=== PATIENT | female | born 1995 | race Hispanic/Latino ===

== ENCOUNTER 2020-06-28 06:24 | Day surgery (SDC) | payer OTHER ==
[2020-06-26 16:36] LABS: Absolute Lymphocytes (CBC) 2.2 K/uL (0.7-4.9); Basophils % 0.7 % (0-1.3); Hematocrit 38.5 % (36.0-45.0); Lymphocytes % 20.3 % (15.3-44.8); MPV 11.2 fL (7.6-11.3); RBC Red Blood Cell Count 4.38 M/uL (3.86-4.86)
[2020-06-26 16:55] LABS: ALT/SGPT 21 U/L (12-78); AST/SGOT 11 U/L (15-37); Albumin 3.5 g/dL (3.4-5.0); Alkaline Phosphatase 56 U/L (45-117); Amylase 108 U/L (25-115); BUN Blood Urea Nitrogen 9 mg/dL (7-18); Bicarbonate 26 mmol/L (21-32); Bilirubin Direct 0.2 mg/dL (0-0.2); Bilirubin Total 0.6 mg/dL (0.2-1.0); Glucose Level 86 mg/dL (74-106); Lipase 310 U/L (73-393); Potassium 3.6 mmol/L (3.5-5.1); Protein, Total 7.4 g/dL (6.4-8.2); Sodium Level 144 mmol/L (136-145)
--- OUTSIDE RECORDS SUMMARY | 2020-06-28 06:27 | XMS REPORT | Continuity of Care Document ---
:[address] [facility] t Address [address] [place] [address] Care Team Providers Name Role Phone Estevez Attending Clinician Adalberto Morillo Attending Clinician Payers Payer Name Policy Type Policy Number Effective Date Expiration Date S ource Problems This patient has no known problems. Allergies, Adverse Reactions, Alerts Allergy Allergy Status Severity Reaction(s) Onset Inactive Treating Comm ents Source Name Type Date Date Clinician No Known DA Active U 2019-0 [facility] 11-28 Clear s 00:00: [place] 00 [facility] No Known DA Active U 2019-0 [facility] Allergie 11-12 Clear s 00:00: [place] 00 [facility] Medications This patient has no known medications. Procedures This patient has no known procedures. Encounters Start End Encounter Admission Attending Care Care Encounter Source Date/Time Date/Time Type Type Clinicians Facility Department ID 2020-06-02 2020-06-03 Emergency MELISSA Estevez [id number] 21:34:00 00:27:00 Angel Lopez [id number] [place] [id number] [place] [id number] 2019-10-07 2019-10-07 Emergency MELISSA Escamilla [id number] 03:55:15 07:11:00 Prasad Lopez [id number] [place] [id number] [place] [id number] 084 Results Test Description Test Time Test Comments Results Result Comments Source COMPREHENSIVE METABOLIC PANEL 2018-11-30 10:07:00 Test Item Value Reference Range Interpretation Comme nts SODIUM (test code = NA) 142 mmol/L 136-145 N POTASSIUM (test code = K) 3.4 mmol/L 3.5-5.1 L CHLORIDE (test code = CL) 110.0 mmol/L 98-107 H CARBON DIOXIDE (test code = 24.0 mmol/L 21-32 N CO2) ANION GAP (test code = GAP) 11.4 10-20 N GLUCOSE (test code = GLU) 82 mg/dL 74-106 N BLOOD UREA NITROGEN (test code 5 mg/dL 7-18 L = BUN) GLOMERULAR FILTRATION RATE > 60 mL/min >=60 E stimated GFR by using (test code = GFR) Modified M DRD formula.Chronic kidney disease is defined as either kidney d amageor GFR <60 mL/min/1.73 m2 for >3 months. CREATININE (test code = CREAT) 0.70 mg/dL 0.55-1.02 N Note change in reference range due to ch jovan in reagent. BUN/CREATININE RATIO (test code 7.1 10-20 L = BUN/CREA) TOTAL PROTEIN (test code = 7.8 gram/dL 6.4-8.2 N PROT) ALBUMIN (test code = ALB) 3.2 g/dL 3.4-5.0 L GLOBULIN (test code = GLOB) 4.6 gram/dL 2.7-4.2 H ALBUMIN/GLOBULIN RATIO (test 0.7 0.75-1.50 L code = A/G) CALCIUM (test code = CA) 9.1 mg/dL 8.5-10.1 N BILIRUBIN TOTAL (test code = 1.90 mg/dL 0.0-1.0 H BILT) SGOT/AST (test code = AST) 83 IUnit/L 15-37 H SGPT/ALT (test code = ALT) 350 IUnit/L 12-78 H ALKALINE PHOSPHATASE TOTAL 85 IUnit/L 45-117 N * *Note change in reference (test code = ALKP) range due to change in reagent. COMPREHENSIVE METABOLIC [id number] 10:00:00 Test Item Value Reference Range Interpretation Comments SODIUM (test code = NA) 142 mmol/L 136-145 N POTASSIUM (test code = K) 3.4 mmol/L 3.5-5.1 L CHLORIDE (test code = CL) 110.0 mmol/L 98-107 H CARBON DIOXIDE (test code = CO2) mmol/L 21-32 ANION GAP (test code = GAP) 10-20 GLUCOSE (test code = GLU) mg/dL 74-106 BLOOD UREA NITROGEN (test code = mg/dL 7-18 BUN) GLOMERULAR FILTRATION RATE (test mL/min >=60 code = GFR) CREATININE (test code = CREAT) mg/dL 0.55-1.02 BUN/CREATININE RATIO (test code 10-20 = BUN/CREA) TOTAL PROTEIN (test code = PROT) gram/dL 6.4-8.2 ALBUMIN (test code = ALB) g/dL 3.4-5.0 GLOBULIN (test code = GLOB) gram/dL 2.7-4.2 ALBUMIN/GLOBULIN RATIO (test 0.75-1.50 code = A/G) CALCIUM (test code = CA) mg/dL 8.5-10.1 BILIRUBIN TOTAL (test code = mg/dL 0.0-1.0 BILT) SGOT/AST (test code = AST) IUnit/L 15-37 SGPT/ALT (test code = ALT) IUnit/L 12-78 ALKALINE PHOSPHATASE TOTAL (test IUnit/L 45-117 code = ALKP) [id number] 17:13:00 Test Item Value Reference Range Interpretation Comments LIPASE (test code = LIP) 468 U/L 73.0-393.0 H ACETONE [id number] 17:13:00 Test Item Value Reference Range Interpretation Comments ACETONE BLOOD (test code = ACETB) NEGATIVE NEGATIVE SED [id number] 10:58:00 Test Item Value Reference Range Interpretation Comments SED RATE (test code = 41 mm/hr 0-20 H WINTRO BE METHOD: NORMAL SEDW) RANGE FOR MEN: 0-9 MM/HR WOMAN: 0-20 MM/HR SENT [id number] V.LAB.KP2 11/29/18 0704SED RATE [id number] 10:57:00 Test Item Value Reference Range Interpretation Comments SED RATE WESTERGREN (test code = 41 mm/hr 0-20 H SEDW) COMPREHENSIVE METABOLIC [id number] 07:45:00 Test Item Value Reference Range Interpretation Comments SODIUM (test code = 142 mmol/L 136-145 N NA) POTASSIUM (test code = 3.1 mmol/L 3.5-5.1 L K) CHLORIDE (test code = 111.0 mmol/L 98-107 H CL) CARBON DIOXIDE (test 21.0 mmol/L 21-32 N code = CO2) ANION GAP (test code = 13.1 10-20 N GAP) GLUCOSE (test code = 101 mg/dL 74-106 N GLU) BLOOD UREA NITROGEN 4 mg/dL 7-18 L (test code = BUN) GLOMERULAR FILTRATION > 60 mL/min >=60 Estima annabella GFR by RATE (test code = GFR) using Modified MDRD formula.Chronic kidney disease is defined as ei er kidney damageor GFR <60 mL/min/1.73 m2 for >3 months. CREATININE (test code 0.60 mg/dL 0.55-1.02 N Note change in = CREAT) reference range due to change in reagent. BUN/CREATININE RATIO 6.7 10-20 L (test code = BUN/CREA) TOTAL PROTEIN (test 7.3 gram/dL 6.4-8.2 N code = PROT) ALBUMIN (test code = 3.1 g/dL 3.4-5.0 L ALB) GLOBULIN (test code = 4.2 gram/dL 2.7-4.2 N GLOB) ALBUMIN/GLOBULIN RATIO 0.7 0.75-1.50 L (test code = A/G) CALCIUM (test code = 8.6 mg/dL 8.5-10.1 N CA) BILIRUBIN TOTAL (test 2.10 mg/dL 0.0-1.0 H code = BILT) SGOT/AST (test code = 104 IUnit/L 15-37 H AST) SGPT/ALT (test code = 363 IUnit/L 12-78 H ALT) ALKALINE PHOSPHATASE 85 IUnit/L 45-117 N Note change in TOTAL (test code = reference range due ALKP) to change in reagent. [id number] 07:45:00 Test Item Value Reference Range Interpretation Comments MAGNESIUM (test code = MAG) 1.9 mg/dL 1.8-2.4 N [id number] 07:32:00 Test Item Value Reference Range Interpretation Comments LIPASE (test code = LIP) 468 U/L 73.0-393.0 H ACETONE [id number] 07:32:00 Test Item Value Reference Range Interpretation Comments ACETONE BLOOD (test code = ACETB) NEGATIVE COMPREHENSIVE METABOLIC [id number] 07:32:00 Test Item Value Reference Range Interpretation Comments SODIUM (test code = NA) 142 mmol/L 136-145 N POTASSIUM (test code = K) 3.1 mmol/L 3.5-5.1 L CHLORIDE (test code = CL) 111.0 mmol/L 98-107 H CARBON DIOXIDE (test code = CO2) mmol/L 21-32 ANION GAP (test code = GAP) 10-20 GLUCOSE (test code = GLU) mg/dL 74-106 BLOOD UREA NITROGEN (test code = mg/dL 7-18 BUN) GLOMERULAR FILTRATION RATE (test mL/min >=60 code = GFR) CREATININE (test code = CREAT) mg/dL 0.55-1.02 BUN/CREATININE RATIO (test code 10-20 = BUN/CREA) TOTAL PROTEIN (test code = PROT) gram/dL 6.4-8.2 ALBUMIN (test code = ALB) g/dL 3.4-5.0 GLOBULIN (test code = GLOB) gram/dL 2.7-4.2 ALBUMIN/GLOBULIN RATIO (test 0.75-1.50 code = A/G) CALCIUM (test code = CA) mg/dL 8.5-10.1 BILIRUBIN TOTAL (test code = mg/dL 0.0-1.0 BILT) SGOT/AST (test code = AST) IUnit/L 15-37 SGPT/ALT (test code = ALT) IUnit/L 12-78 ALKALINE PHOSPHATASE TOTAL (test IUnit/L 45-117 code = ALKP) [id number] 07:32:00 Test Item Value Reference Range Interpretation Comments MAGNESIUM (test code = MAG) mg/dL 1.8-2.4 - CT ABD PELVIS [id number] 20:40:00 [facility] 1995 Age/S: 23 / F Royce Jordan Unit #: [id number] Loc: [place] [address] Phys: Micki Gao MD Acct: [id number] Dis Date: Status: ADM IN PHONE #: [phone] Exam Date: 11/28/20182131 FAX #: [phone] Reason: RECENT GASTRIC SLEEVE, NOT TOLERATING PO EXAMS: CPTCODE: [id number] CT ABD PELVIS W/CONT 18080 REASON FOR EXAM: RECENT GASTRIC SLEEVE, NOT TOLERATING PO EXAM ORDER DATE: 11/28/2018 7:00 PM Ordering M.DReggie: Micki Gao MD PROCEDURE: - CT ABD PELVIS W/CONT COMPARISON: FINDINGS: CT images of the abdomen and pelvis were obtained with IV and oral contrast at 5mm. Dose modulation, iterative reconstruction, and/or weight based adjustment of the MA/KV was utilized to reduce the radiation dose to as low as reasonably achievable. Intravenous contrast: 100cc of Omnipaque 370. The liver, sple en, pancreas are grossly within normal limits. The gallbladder is unremarkable by CT The kidneys are within normal limits. The urinary bladder is partially contracted The colon, small bowel, and stomach are within normal limits without evidence of obstruction. The appendix is unremarkable. 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 The uterus is unremarkable. 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 No evidence of postop fluid collection or abscess. No acute findings inthe abdomen at 2039 Reported and signed by: Avery Luna M.D. CC: Technologist:RT Laurence(R)(CT); ... CTDI: DLP: Trnscb Date/Time: 11/28/2018 (2039) Yue Orig Print D/T: S: 11/28/2018 (2042) PAGE 1 Signed ReportBASIC METABOLIC [id number] 20:03:00 Test Item Value Reference Range Interpretation Comments SODIUM (test code = 139 mmol/L 136-145 N NA) POTASSIUM (test code 3.7 mmol/L 3.5-5.1 N = K) CHLORIDE (test code = 108.0 mmol/L 98-107 H CL) CARBON DIOXIDE (test 16.0 mmol/L 21-32 L code = CO2) ANION GAP (test code 18.7 10-20 N = GAP) GLUCOSE (test code = 81 mg/dL 74-106 N GLU) BLOOD UREA NITROGEN 7 mg/dL 7-18 N (test code = BUN) GLOMERULAR FILTRATION > 60 mL/min >=60 Estima annabella GFR by RATE (test code = using Portillo fied MDRD GFR) formula.Chronic kidney disease is defined as [facility] er kidney damageor GFR <60 mL/min/1.73 m2 for >3 months. CREATININE (test code 0.60 mg/dL 0.55-1.02 N Note change in = CREAT) reference range due to change in reagent. BUN/CREATININE RATIO 11.7 10-20 N (test code = BUN/CREA) CALCIUM (test code = 9.5 mg/dL 8.5-10.1 N CA) HEPATIC FUNCTION [id number] 20:03:00 Test Item Value Reference Range Interpretation Comments TOTAL PROTEIN (test 9.0 gram/dL 6.4-8.2 H code = PROT) ALBUMIN (test code = 3.7 g/dL 3.4-5.0 N ALB) GLOBULIN (test code = 5.3 gram/dL 2.7-4.2 H GLOB) ALBUMIN/GLOBULIN RATIO 0.7 0.75-1.50 L (test code = A/G) BILIRUBIN TOTAL (test 2.60 mg/dL 0.0-1.0 H code = BILT) BILIRUBIN DIRECT (test 1.70 mg/dL 0.0-0.20 H code = BILD) SGOT/AST (test code = 133 IUnit/L 15-37 H AST) SGPT/ALT (test code = 440 IUnit/L 12-78 H ALT) ALKALINE PHOSPHATASE 109 IUnit/L 45-117 N Note change in TOTAL (test code = reference range due ALKP) to change in reagent. [id number] 20:03:00 Test Item Value Reference Range Interpretation Comments LIPASE (test code = LIP) 435 U/L 73.0-393.0 H HCG SERUM [id number] 20:03:00 Test Item Value Reference Range Interpretation Comments HCG SERUM QUAL (test NEGATIVE NEGATIVE This HC GQL test is NOT code = HCGQL) applicable for MALE patients.Check with nurse about probable order error.If Tumor Marker Test needed, nu rse should order test "HCG TU"(Test #550.08045)---- - BASIC METABOLIC [id number] 19:57:00 Test Item Value Reference Range Interpretation Comments SODIUM (test code = NA) 139 mmol/L 136-145 N POTASSIUM (test code = K) 3.7 mmol/L 3.5-5.1 N CHLORIDE (test code = CL) 108.0 mmol/L 98-107 H CARBON DIOXIDE (test code = CO2) mmol/L 21-32 ANION GAP (test code = GAP) 10-20 GLUCOSE (test code = GLU) mg/dL 74-106 BLOOD UREA NITROGEN (test code = mg/dL 7-18 BUN) GLOMERULAR FILTRATION RATE (test mL/min >=60 code = GFR) CREATININE (test code = CREAT) mg/dL 0.55-1.02 BUN/CREATININE RATIO (test code 10-20 = BUN/CREA) CALCIUM (test code = CA) mg/dL 8.5-10.1 HEPATIC FUNCTION [id number] 19:57:00 Test Item Value Reference Range Interpretation Comments TOTAL PROTEIN (test code = PROT) gram/dL 6.4-8.2 ALBUMIN (test code = ALB) g/dL 3.4-5.0 GLOBULIN (test code = GLOB) gram/dL 2.7-4.2 ALBUMIN/GLOBULIN RATIO (test code = 0.75-1.50 A/G) BILIRUBIN TOTAL (test code = BILT) mg/dL 0.0-1.0 BILIRUBIN DIRECT (test code = BILD) mg/dL 0.0-0.20 SGOT/AST (test code = AST) IUnit/L 15-37 SGPT/ALT (test code = ALT) IUnit/L 12-78 ALKALINE PHOSPHATASE TOTAL (test IUnit/L 45-117 code = ALKP) [id number] 19:57:00 Test Item Value Reference Range Interpretation Comments LIPASE (test code = LIP) U/L 73.0-393.0 HCG SERUM [id number] 19:57:00 Test Item Value Reference Range Interpretation Comments HCG SERUM QUAL (test NEGATIVE NEGATIVE This HC GQL test is NOT code = HCGQL) applicable for MALE patients.Check with nurse about probable order error.If Tumor Marker Test needed, nu rse should order test "HCG TU"(Test #550.31567)---- - URINALYSIS [id number] 19:54:00 Test Item Value Reference Range Interpretation Comments UA COLOR (test code = Dark-Yellow YELLOW COLU) UA APPEARANCE (test code Cloudy CLEAR A = APPU) UA GLUCOSE DIPSTICK (test NEGATIVE mg/dL NEGATIVE code = DGLUU) UA BILIRUBIN DIPSTICK 2.0 (2+) mg/dL NEGATIVE A (test code = BILU) UA KETONE DIPSTICK (test >150 (4+) mg/dL NEGATIVE A code = KETU) UA SPECIFIC GRAVITY (test 1.030 1.001-1.035 code = SGU) UA BLOOD DIPSTICK (test 0.2 mg/dL (2+) mg/dL NEGATIVE A code = MARIUM) UA PH DIPSTICK (test code 6.0 5.0-8.0 = SHAILESH) UA PROTEIN DIPSTICK (test 200 (2+) mg/dL NEGATIVE A code = PROU) UA UROBILINIOGEN DIPSTICK >12.0 (4+) mg/dL NEGATIVE A (test code = URO) UA NITRITE DIPSTICK (test NEGATIVE NEGATIVE code = EVELYN) UA LEUKOCYTE ESTERASE W 250 Noelle/uL (2+) NEGATIVE A REFLEX (test code = Noelle/uL LEUUR) UA WBC (test code = WBCU) 21-50 per HPF 0-5 A UA RBC (test code = RBCU) 11-20 #/HPF 0-5 A UA EPITHELIAL CELLS (test FEW per HPF FEW code = EPIU) UA BACTERIA (test code = MANY #/HPF NONE A BACU) UA MUCUS (test code = FEW #/LPF FEW MUCU) Urine Source? Clean CatchURINALYSIS [id number] 19:51:00 Test Item Value Reference Range Interpretation Comments UA COLOR (test code = Dark-Yellow YELLOW COLU) UA APPEARANCE (test code Cloudy CLEAR A = APPU) UA GLUCOSE DIPSTICK (test NEGATIVE mg/dL NEGATIVE code = DGLUU) UA BILIRUBIN DIPSTICK 2.0 (2+) mg/dL NEGATIVE A (test code = BILU) UA KETONE DIPSTICK (test >150 (4+) mg/dL NEGATIVE A code = KETU) UA SPECIFIC GRAVITY (test 1.030 1.001-1.035 code = SGU) UA BLOOD DIPSTICK (test 0.2 mg/dL (2+) mg/dL NEGATIVE A code = MARIUM) UA PH DIPSTICK (test code 6.0 5.0-8.0 = SHAILESH) UA PROTEIN DIPSTICK (test 200 (2+) mg/dL NEGATIVE A code = PROU) UA UROBILINIOGEN DIPSTICK >12.0 (4+) mg/dL NEGATIVE A (test code = URO) UA NITRITE DIPSTICK (test NEGATIVE NEGATIVE code = EVELYN) UA LEUKOCYTE ESTERASE W 250 Noelle/uL (2+) NEGATIVE A REFLEX (test code = Noelle/uL LEUUR) UA WBC (test code = WBCU) per HPF 0-5 UA RBC (test code = RBCU) per HPF 0-5 UA EPITHELIAL CELLS (test per HPF Few code = EPIU) UA BACTERIA (test code = per HPF NONE BACU) Urine Source? Clean CatchBASIC METABOLIC [id number] 19:45:00 Test Item Value Reference Range Interpretation Comments SODIUM (test code = NA) mmol/L 136-145 POTASSIUM (test code = K) mmol/L 3.5-5.1 CHLORIDE (test code = CL) mmol/L 98-107 CARBON DIOXIDE (test code = CO2) mmol/L 21-32 ANION GAP (test code = GAP) 10-20 GLUCOSE (test code = GLU) mg/dL 74-106 BLOOD UREA NITROGEN (test code = BUN) mg/dL 7-18 GLOMERULAR FILTRATION RATE (test code mL/min >=60 = GFR) CREATININE (test code = CREAT) mg/dL 0.55-1.02 BUN/CREATININE RATIO (test code = 10-20 BUN/CREA) CALCIUM (test code = CA) mg/dL 8.5-10.1 HEPATIC FUNCTION [id number] 19:45:00 Test Item Value Reference Range Interpretation Comments TOTAL PROTEIN (test code = PROT) gram/dL 6.4-8.2 ALBUMIN (test code = ALB) g/dL 3.4-5.0 GLOBULIN (test code = GLOB) gram/dL 2.7-4.2 ALBUMIN/GLOBULIN RATIO (test code = 0.75-1.50 A/G) BILIRUBIN TOTAL (test code = BILT) mg/dL 0.0-1.0 BILIRUBIN DIRECT (test code = BILD) mg/dL 0.0-0.20 SGOT/AST (test code = AST) IUnit/L 15-37 SGPT/ALT (test code = ALT) IUnit/L 12-78 ALKALINE PHOSPHATASE TOTAL (test IUnit/L 45-117 code = ALKP) [id number] 19:45:00 Test Item Value Reference Range Interpretation Comments LIPASE (test code = LIP) U/L 73.0-393.0 HCG SERUM [id number] 19:45:00 Test Item Value Reference Range Interpretation Comments HCG SERUM QUAL (test NEGATIVE NEGATIVE This HC GQL test is NOT code = HCGQL) applicable for MALE patients.Check with nurse about probable order error.If Tumor Marker Test needed, nu rse should order test "HCG TU"(Test #550.04986)---- - CBC W/O [id number] 19:27:00 Test Item Value Reference Range Interpretation Comments WHITE BLOOD CELL (test code = 14.5 K/mm3 4.5-12.5 H WBC) RED BLOOD CELL (test code = 5.26 mill/mm3 3.7-5.2 H RBC) HEMOGLOBIN (test code = HGB) 14.2 gram/dL 11.5-15.5 N HEMATOCRIT (test code = HCT) 44.8 % 36.0-46.0 N MEAN CELL VOLUME (test code = 85.2 fL 80-98 N MCV) MEAN CELL HGB (test code = MCH) 27.0 picogram 27.0-33.0 N MEAN CELL HGB CONCETRATION 31.7 gram/dL 33.0-36.0 L (test code = MCHC) RED CELL DISTRIBUTION WIDTH 13.4 % 11.6-16.2 N (test code = RDW) PLATELET COUNT (test code = 386 K/mm3 150-450 N PLT) MEAN PLATELET VOLUME (test code 11.9 fL 6.7-11.0 H = MPV) CBC W/O [id number] 19:22:00 Test Item Value Reference Range Interpretation Comments WHITE BLOOD CELL (test code = K/mm3 4.5-12.5 WBC) RED BLOOD CELL (test code = RBC) mill/mm3 3.7-5.2 HEMOGLOBIN (test code = HGB) 14.2 gram/dL 11.5-15.5 N HEMATOCRIT (test code = HCT) 44.8 % 36.0-46.0 N MEAN CELL VOLUME (test code = fL 80-98 MCV) MEAN CELL HGB (test code = MCH) picogram 27.0-33.0 MEAN CELL HGB CONCETRATION (test gram/dL 33.0-36.0 code = MCHC) RED CELL DISTRIBUTION WIDTH % 11.6-16.2 (test code = RDW) PLATELET COUNT (test code = PLT) K/mm3 150-450 MEAN PLATELET VOLUME (test code fL 6.7-11.0 = MPV) CBC W/AUTO [id number] 06:09:00 Test Item Value Reference Range Interpretation Comments WHITE BLOOD CELL (test code = 12.0 K/mm3 4.5-12.5 N WBC) RED BLOOD CELL (test code = 4.74 mill/mm3 3.7-5.2 N RBC) HEMOGLOBIN (test code = HGB) 12.7 gram/dL 11.5-15.5 N HEMATOCRIT (test code = HCT) 39.7 % 36.0-46.0 N MEAN CELL VOLUME (test code = 83.8 fL 80-98 N MCV) MEAN CELL HGB (test code = MCH) 26.8 picogram 27.0-33.0 L MEAN CELL HGB CONCETRATION 32.0 gram/dL 33.0-36.0 L (test code = MCHC) RED CELL DISTRIBUTION WIDTH 13.6 % 11.6-16.2 N (test code = RDW) RED CELL DISTRIBUTION WIDTH SD 41.7 fL 37.0-51.0 N (test code = RDW-SD) PLATELET COUNT (test code = 307 K/mm3 150-450 N PLT) MEAN PLATELET VOLUME (test code 11.6 fL 6.7-11.0 H = MPV) NEUTROPHIL % (test code = NT%) 69.1 % 39.0-69.0 H IMMATURE GRANULOCYTE % (test 0.5 % 0.0-5.0 N code = IG%) LYMPHOCYTE % (test code = LY%) 18.5 % 25.0-55.0 L MONOCYTE % (test code = MO%) 11.2 % 0.0-10.0 H EOSINOPHIL % (test code = EO%) 0.2 % 0.0-5.0 N BASOPHIL % (test code = BA%) 0.5 % 0.0-1.0 N NUCLEATED RBC % (test code = 0.0 % 0-0 N NRBC%) NEUTROPHIL # (test code = NT#) 8.27 K/mm3 1.8-7.7 H IMMATURE GRANULOCYTE # (test 0.06 x10 3/uL 0-0.03 H code = IG#) LYMPHOCYTE # (test code = LY#) 2.22 K/mm3 1.0-5.0 N MONOCYTE # (test code = MO#) 1.34 K/mm3 0-0.8 H EOSINOPHIL # (test code = EO#) 0.02 K/mm3 0.0-0.5 N BASOPHIL # (test code = BA#) 0.06 K/mm3 0.0-0.2 N NUCLEATED RBC # (test code = 0.00 K/mm3 0.0-0.1 N NRBC#) MANUAL DIFF REQUIRED (test code NO = MDIFF) CBC W/AUTO [id number] 05:58:00 Test Item Value Reference Range Interpretation Comments WHITE BLOOD CELL (test code = K/mm3 4.5-12.5 WBC) RED BLOOD CELL (test code = RBC) mill/mm3 3.7-5.2 HEMOGLOBIN (test code = HGB) 12.7 gram/dL 11.5-15.5 N HEMATOCRIT (test code = HCT) 39.7 % 36.0-46.0 N MEAN CELL VOLUME (test code = fL 80-98 MCV) MEAN CELL HGB (test code = MCH) picogram 27.0-33.0 MEAN CELL HGB CONCETRATION (test gram/dL 33.0-36.0 code = MCHC) RED CELL DISTRIBUTION WIDTH % 11.6-16.2 (test code = RDW) RED CELL DISTRIBUTION WIDTH SD fL 37.0-51.0 (test code = RDW-SD) PLATELET COUNT (test code = PLT) K/mm3 150-450 MEAN PLATELET VOLUME (test code fL 6.7-11.0 = MPV) NEUTROPHIL % (test code = NT%) % 39.0-69.0 IMMATURE GRANULOCYTE % (test % 0.0-5.0 code = IG%) LYMPHOCYTE % (test code = LY%) % 25.0-55.0 MONOCYTE % (test code = MO%) % 0.0-10.0 EOSINOPHIL % (test code = EO%) % 0.0-5.0 BASOPHIL % (test code = BA%) % 0.0-1.0 NEUTROPHIL # (test code = NT#) K/mm3 1.8-7.7 LYMPHOCYTE # (test code = LY#) K/mm3 1.0-5.0 MONOCYTE # (test code = MO#) K/mm3 0-0.8 EOSINOPHIL # (test code = EO#) K/mm3 0.0-0.5 BASOPHIL # (test code = BA#) K/mm3 0.0-0.2 STOMACH,RESECTION NOT [id number] 15:17:00 RUN DATE: 11/19/18 [place] 1 RUN TIME: 1517 Specimen Inquiry RUN USER: INTERFACE PATIENT: ALHAJI HARTMANN LOC: BA #: [id number] AGE/SX: 23/F ROOM: [facility] RE11/18/18REG DR: Sander Segura MD : 89 BED: A DIS: STATUS: ADM IN TLOC: SPEC #: [id number] RECD: 11/18/18 STATUS: ORTEGA RE #: [id number] JOSELYN: 11/18/[address] [facility] [address]: Sander Segura MD ENTERED: 11/18/18 SP TYPE: STOM NOT OTHR DR: DOES_NOT KNOW Tori Hidalgo MDORDERED: GROSS COPIES TO: DOES_NOT KNOW Sander Segura MD [address] [place] [address] Tori Hidalgo MD [address] [place] [address] [id number]: GROSS (11/19/18) TISSUES: STOMACH, NOS - PORTION CLINICAL HISTORY COLLECTION DATE: 11/18/18 [facility] FINAL DIAGNOSIS Stomach, sleeve gastrectomy: UNREMARKABLE GASTRIC MUCOSA AND MUSCULAR WALL RRB/sm D [id number] MACROSCOPIC The specimen is received in formalin, labeled with the patient's name, identified as "portion of stomach" and consists of a sleeve gastrectomy specimen measuring 18.0 by up to 4.2 cm witha wall thickness up to 0.6 cm. The mucosal surface is stapled closed. A small amount of unremarka ble fatty CONTINUED ON NEXT PAGE RUN DATE: 11/19/18 [facility] PAGE 2 RUN TIME: 1517 Specimen Inquiry RUN USER: INTERFACE SPEC #: [id number] PATIENT: ALHAJI HARTMANN #[id number] (Continued) MACROSCOPIC (Continued) tissue is attached to the opposite surface. The serosal surface is pink with congested vessels. The lumen contains thick brown-red fluid. The mucosal surface is pink-godfrey with unremarkable folds. No areas of ulceration, nodules or masses are seen. Lace Burn Out Tender tissue is submitted in a single cassette. GROSS PERFORMED AT [facility] [address] [place] [address] [phone])[phone] MICROSCOPIC All of the stains, including any controls performed, stain appropriately. MICROSCOPIC PERFORMED AT [facility] [address] [place] [address] (p)[phone] PERFORMING SITE Diagnosis performed at: [facility] [address] [facility] [place] [address] Signed SIGNATURE ON FILE Nolan Gooden MD 11/19/18 1517 END OF REPORT BASIC METABOLIC [id number] 06:27:00 Test Item Value Reference Range Interpretation Comments SODIUM (test code = 136 mmol/L 136-145 N NA) POTASSIUM (test code 3.7 mmol/L 3.5-5.1 N = K) CHLORIDE (test code = 105.0 mmol/L 98-107 N CL) CARBON DIOXIDE (test 19.0 mmol/L 21-32 L code = CO2) ANION GAP (test code 15.7 10-20 N = GAP) GLUCOSE (test code = 100 mg/dL 74-106 N GLU) BLOOD UREA NITROGEN 4 mg/dL 7-18 L (test code = BUN) GLOMERULAR FILTRATION > 60 mL/min >=60 Estima annabella GFR by RATE (test code = using Portillo fied MDRD GFR) formula.Chronic kidney disease is defined as eith er kidney damageor GFR <60 mL/min/1.73 m2 for >3 months. CREATININE (test code 0.60 mg/dL 0.55-1.02 N Note change in = CREAT) reference range due to change in reagent. BUN/CREATININE RATIO 6.7 10-20 L (test code = BUN/CREA) CALCIUM (test code = 8.8 mg/dL 8.5-10.1 N CA) BASIC METABOLIC [id number] 06:15:00 Test Item Value Reference Range Interpretation Comments SODIUM (test code = NA) 136 mmol/L 136-145 N POTASSIUM (test code = K) 3.7 mmol/L 3.5-5.1 N CHLORIDE (test code = CL) 105.0 mmol/L 98-107 N CARBON DIOXIDE (test code = CO2) mmol/L 21-32 ANION GAP (test code = GAP) 10-20 GLUCOSE (test code = GLU) mg/dL 74-106 BLOOD UREA NITROGEN (test code = mg/dL 7-18 BUN) GLOMERULAR FILTRATION RATE (test mL/min >=60 code = GFR) CREATININE (test code = CREAT) mg/dL 0.55-1.02 BUN/CREATININE RATIO (test code 10-20 = BUN/CREA) CALCIUM (test code = CA) mg/dL 8.5-10.1 CBC W/AUTO [id number] 06:02:00 Test Item Value Reference Range Interpretation Comments WHITE BLOOD CELL (test code = 20.1 K/mm3 4.5-12.5 H WBC) RED BLOOD CELL (test code = 4.84 mill/mm3 3.7-5.2 N RBC) HEMOGLOBIN (test code = HGB) 12.9 gram/dL 11.5-15.5 N HEMATOCRIT (test code = HCT) 40.5 % 36.0-46.0 N MEAN CELL VOLUME (test code = 83.7 fL 80-98 N MCV) MEAN CELL HGB (test code = MCH) 26.7 picogram 27.0-33.0 L MEAN CELL HGB CONCETRATION 31.9 gram/dL 33.0-36.0 L (test code = MCHC) RED CELL DISTRIBUTION WIDTH 13.1 % 11.6-16.2 N (test code = RDW) RED CELL DISTRIBUTION WIDTH SD 40.2 fL 37.0-51.0 N (test code = RDW-SD) PLATELET COUNT (test code = 350 K/mm3 150-450 N PLT) MEAN PLATELET VOLUME (test code 11.5 fL 6.7-11.0 H = MPV) NEUTROPHIL % (test code = NT%) 85.3 % 39.0-69.0 H IMMATURE GRANULOCYTE % (test 0.5 % 0.0-5.0 N code = IG%) LYMPHOCYTE % (test code = LY%) 6.9 % 25.0-55.0 L MONOCYTE % (test code = MO%) 7.1 % 0.0-10.0 N EOSINOPHIL % (test code = EO%) 0.0 % 0.0-5.0 N BASOPHIL % (test code = BA%) 0.2 % 0.0-1.0 N NUCLEATED RBC % (test code = 0.0 % 0-0 N NRBC%) NEUTROPHIL # (test code = NT#) 17.10 K/mm3 1.8-7.7 H IMMATURE GRANULOCYTE # (test 0.11 x10 3/uL 0-0.03 H code = IG#) LYMPHOCYTE # (test code = LY#) 1.38 K/mm3 1.0-5.0 N MONOCYTE # (test code = MO#) 1.43 K/mm3 0-0.8 H EOSINOPHIL # (test code = EO#) 0.00 K/mm3 0.0-0.5 N BASOPHIL # (test code = BA#) 0.04 K/mm3 0.0-0.2 N NUCLEATED RBC # (test code = 0.00 K/mm3 0.0-0.1 N NRBC#) MANUAL DIFF REQUIRED (test code NO = MDIFF) COMPREHENSIVE METABOLIC [id number] 15:43:00 Test Item Value Reference Range Interpretation Comments SODIUM (test code = 139 mmol/L 136-145 N NA) POTASSIUM (test code = 4.0 mmol/L 3.5-5.1 N K) CHLORIDE (test code = 109.0 mmol/L 98-107 H CL) CARBON DIOXIDE (test 22.0 mmol/L 21-32 N code = CO2) ANION GAP (test code = 12.0 10-20 N GAP) GLUCOSE (test code = 80 mg/dL 74-106 N GLU) BLOOD UREA NITROGEN 9 mg/dL 7-18 N (test code = BUN) GLOMERULAR FILTRATION > 60 mL/min >=60 Estima annabella GFR by RATE (test code = GFR) using Modified MDRD formula.Chronic kidney disease is defined as ei er kidney damageor GFR <60 mL/min/1.73 m2 for >3 months. CREATININE (test code 0.80 mg/dL 0.55-1.02 N Note change in = CREAT) reference range due to change in reagent. BUN/CREATININE RATIO 11.3 10-20 N (test code = BUN/CREA) TOTAL PROTEIN (test 8.1 gram/dL 6.4-8.2 N code = PROT) ALBUMIN (test code = 3.7 g/dL 3.4-5.0 N ALB) GLOBULIN (test code = 4.4 gram/dL 2.7-4.2 H GLOB) ALBUMIN/GLOBULIN RATIO 0.8 0.75-1.50 N (test code = A/G) CALCIUM (test code = 8.9 mg/dL 8.5-10.1 N CA) BILIRUBIN TOTAL (test 0.50 mg/dL 0.0-1.0 N code = BILT) SGOT/AST (test code = 53 IUnit/L 15-37 H AST) SGPT/ALT (test code = 110 IUnit/L 12-78 H ALT) ALKALINE PHOSPHATASE 63 IUnit/L 45-117 N Note change in TOTAL (test code = reference range due ALKP) to change in reagent. HCG SERUM [id number] 15:43:00 Test Item Value Reference Range Interpretation Comments HCG SERUM QUAL (test NEGATIVE NEGATIVE This HC GQL test is NOT code = HCGQL) applicable for MALE patients.Check with nurse about probable order error.If Tumor Marker Test needed, nu rse should order test "HCG TU"(Test #[id number])---- - COMPREHENSIVE METABOLIC [id number] 15:37:00 Test Item Value Reference Range Interpretation Comments SODIUM (test code = NA) 139 mmol/L 136-145 N POTASSIUM (test code = K) 4.0 mmol/L 3.5-5.1 N CHLORIDE (test code = CL) 109.0 mmol/L 98-107 H CARBON DIOXIDE (test code = CO2) mmol/L 21-32 ANION GAP (test code = GAP) 10-20 GLUCOSE (test code = GLU) mg/dL 74-106 BLOOD UREA NITROGEN (test code = mg/dL 7-18 BUN) GLOMERULAR FILTRATION RATE (test mL/min >=60 code = GFR) CREATININE (test code = CREAT) mg/dL 0.55-1.02 BUN/CREATININE RATIO (test code 10-20 = BUN/CREA) TOTAL PROTEIN (test code = PROT) gram/dL 6.4-8.2 ALBUMIN (test code = ALB) g/dL 3.4-5.0 GLOBULIN (test code = GLOB) gram/dL 2.7-4.2 ALBUMIN/GLOBULIN RATIO (test 0.75-1.50 code = A/G) CALCIUM (test code = CA) mg/dL 8.5-10.1 BILIRUBIN TOTAL (test code = mg/dL 0.0-1.0 BILT) SGOT/AST (test code = AST) IUnit/L 15-37 SGPT/ALT (test code = ALT) IUnit/L 12-78 ALKALINE PHOSPHATASE TOTAL (test IUnit/L 45-117 code = ALKP) HCG SERUM [id number] 15:37:00 Test Item Value Reference Range Interpretation Comments HCG SERUM QUAL (test NEGATIVE NEGATIVE This HC GQL test is NOT code = HCGQL) applicable for MALE patients.Check with nurse about probable order error.If Tumor Marker Test needed, nu rse should order test "HCG TU"(Test #[id number])---- - - XR CHEST 2 [id number] 15:36:00 FAX: Sander Monzon MD [phone] [place]: O St: PRE Name: ALHAJI HARTMANN [facility] : 1995 Age/S: 23/F [address] Unit#: [id number] Loc: V.SRG DEZ [place] [address] Phys: Sander Segura MD Acct: [id number] Dis Date: Status: PRE IN PHONE #: [phone] Exam Date: 11/12/2018 1419 FAX #: [phone] Reason: PRE OP EXAMS: CPT CODE: [id number] XR CHEST 2 V [id number] REASON FOR EXAM: PRE OP Exam Order Date:11/12/2018 2:09 PM Ordering Baldemar: Sander Segura MD PROCEDURE: - XR CHEST 2 V COMPARISON: FINDINGS: PA and lateral views of the chest show clear lungs without evidence of consolidation. No evidence of effusion. The heart size is within normal limits. Pulmonary vasculatures are unremarkable. The osseous structures are grossly intact. IMPRESSION: No active disease. at 1530 Reported and signed by: Avery Luna M.D. CC: Sander Segura M.D. Technologist: LOLA HUA (R) Trnscrd Date/Time/By: 11/12/2018 (1530) : By: IngridVTL Orig Print D/T: S: 11/12/2018 ([id number]) PAGE 1 Signed ReportCOMPREHENSIVE METABOLIC [id number] 15:34:00 Test Item Value Reference Range Interpretation Comments SODIUM (test code = NA) 139 mmol/L 136-145 N POTASSIUM (test code = K) 4.0 mmol/L 3.5-5.1 N CHLORIDE (test code = CL) 109.0 mmol/L 98-107 H CARBON DIOXIDE (test code = CO2) mmol/L 21-32 ANION GAP (test code = GAP) 10-20 GLUCOSE (test code = GLU) mg/dL 74-106 BLOOD UREA NITROGEN (test code = mg/dL 7-18 BUN) GLOMERULAR FILTRATION RATE (test mL/min >=60 code = GFR) CREATININE (test code = CREAT) mg/dL 0.55-1.02 BUN/CREATININE RATIO (test code 10-20 = BUN/CREA) TOTAL PROTEIN (test code = PROT) gram/dL 6.4-8.2 ALBUMIN (test code = ALB) g/dL 3.4-5.0 GLOBULIN (test code = GLOB) gram/dL 2.7-4.2 ALBUMIN/GLOBULIN RATIO (test 0.75-1.50 code = A/G) CALCIUM (test code = CA) mg/dL 8.5-10.1 BILIRUBIN TOTAL (test code = mg/dL 0.0-1.0 BILT) SGOT/AST (test code = AST) IUnit/L 15-37 SGPT/ALT (test code = ALT) IUnit/L 12-78 ALKALINE PHOSPHATASE TOTAL (test IUnit/L 45-117 code = ALKP) HCG SERUM [id number] 15:34:00 Test Item Value Reference Range Interpretation Comments HCG SERUM QUAL (test code = HCGQL) NEGATIVE PROTHROMBIN [id number] 15:25:00 Test Item Value Reference Range Interpretation Comments PROTHROMBIN TIME 11.5 seconds 9.0-14.0 N PATIENT (test code = PTP) INTERNATIONAL NORMAL 1.0 0.8-1.2 N The the rapeutic range RATIO (test code = for oral INR) anticoagulant t herapy formost indicat ions is an internati onal normalized rati o (INR)of between 2.0 and 3.0. The recommended therapeutic INR range for various cli nical situations is l isted below: Clinical Situat ion INR range Pulmonary embol ism treatment (2.0-3.0)Venou s thrombosis treatmentVenous thrombosis prophylaxis (hi gh risk surgery)Prevent ion of systemic emboli sm from: A cute myocardial infa rction Valvula r heart disease Atrial fibrilla tion Mechanical pros thetic heart valves (2.5-3.5) THROMBOPLASTIN TIME [id number] 15:25:00 Test Item Value Reference Range Interpretation Comments THROMBOPLASTIN TIME PARTIAL 33.0 seconds 25.0-36.5 N (test code = PTT) CBC W/AUTO [id number] 15:16:00 Test Item Value Reference Range Interpretation Comments WHITE BLOOD CELL (test code = K/mm3 4.5-12.5 WBC) RED BLOOD CELL (test code = RBC) mill/mm3 3.7-5.2 HEMOGLOBIN (test code = HGB) 13.5 gram/dL 11.5-15.5 N HEMATOCRIT (test code = HCT) 43.1 % 36.0-46.0 N MEAN CELL VOLUME (test code = fL 80-98 MCV) MEAN CELL HGB (test code = MCH) picogram 27.0-33.0 MEAN CELL HGB CONCETRATION (test gram/dL 33.0-36.0 code = MCHC) RED CELL DISTRIBUTION WIDTH % 11.6-16.2 (test code = RDW) RED CELL DISTRIBUTION WIDTH SD fL 37.0-51.0 (test code = RDW-SD) PLATELET COUNT (test code = PLT) K/mm3 150-450 MEAN PLATELET VOLUME (test code fL 6.7-11.0 = MPV) NEUTROPHIL % (test code = NT%) % 39.0-69.0 IMMATURE GRANULOCYTE % (test % 0.0-5.0 code = IG%) LYMPHOCYTE % (test code = LY%) % 25.0-55.0 MONOCYTE % (test code = MO%) % 0.0-10.0 EOSINOPHIL % (test code = EO%) % 0.0-5.0 BASOPHIL % (test code = BA%) % 0.0-1.0 NEUTROPHIL # (test code = NT#) K/mm3 1.8-7.7 LYMPHOCYTE # (test code = LY#) K/mm3 1.0-5.0 MONOCYTE # (test code = MO#) K/mm3 0-0.8 EOSINOPHIL # (test code = EO#) K/mm3 0.0-0.5 BASOPHIL # (test code = BA#) K/mm3 0.0-0.2 CBC W/AUTO [id number] 15:16:00 Test Item Value Reference Range Interpretation Comments WHITE BLOOD CELL (test code = 10.9 K/mm3 4.5-12.5 N WBC) RED BLOOD CELL (test code = 4.94 mill/mm3 3.7-5.2 N RBC) HEMOGLOBIN (test code = HGB) 13.5 gram/dL 11.5-15.5 N HEMATOCRIT (test code = HCT) 43.1 % 36.0-46.0 N MEAN CELL VOLUME (test code = 87.2 fL 80-98 N MCV) MEAN CELL HGB (test code = MCH) 27.3 picogram 27.0-33.0 N MEAN CELL HGB CONCETRATION 31.3 gram/dL 33.0-36.0 L (test code = MCHC) RED CELL DISTRIBUTION WIDTH 13.7 % 11.6-16.2 N (test code = RDW) RED CELL DISTRIBUTION WIDTH SD 43.6 fL 37.0-51.0 N (test code = RDW-SD) PLATELET COUNT (test code = 429 K/mm3 150-450 N PLT) MEAN PLATELET VOLUME (test code 11.4 fL 6.7-11.0 H = MPV) NEUTROPHIL % (test code = NT%) 69.4 % 39.0-69.0 H IMMATURE GRANULOCYTE % (test 0.5 % 0.0-5.0 N code = IG%) LYMPHOCYTE % (test code = LY%) 21.7 % 25.0-55.0 L MONOCYTE % (test code = MO%) 5.8 % 0.0-10.0 N EOSINOPHIL % (test code = EO%) 2.0 % 0.0-5.0 N BASOPHIL % (test code = BA%) 0.6 % 0.0-1.0 N NUCLEATED RBC % (test code = 0.0 % 0-0 N NRBC%) NEUTROPHIL # (test code = NT#) 7.57 K/mm3 1.8-7.7 N IMMATURE GRANULOCYTE # (test 0.05 x10 3/uL 0-0.03 H code = IG#) LYMPHOCYTE # (test code = LY#) 2.36 K/mm3 1.0-5.0 N MONOCYTE # (test code = MO#) 0.63 K/mm3 0-0.8 N EOSINOPHIL # (test code = EO#) 0.22 K/mm3 0.0-0.5 N BASOPHIL # (test code = BA#) 0.07 K/mm3 0.0-0.2 N NUCLEATED RBC # (test code = 0.00 K/mm3 0.0-0.1 N NRBC#) MANUAL DIFF REQUIRED (test code NO = MDIFF) URINALYSIS [id number] 15:14:00 Test Item Value Reference Range Interpretation Comments UA COLOR (test code = Light-Yellow YELLOW COLU) UA APPEARANCE (test code CLEAR CLEAR = APPU) UA GLUCOSE DIPSTICK (test NEGATIVE mg/dL NEGATIVE code = DGLUU) UA BILIRUBIN DIPSTICK NEGATIVE mg/dL NEGATIVE (test code = BILU) UA KETONE DIPSTICK (test NEGATIVE mg/dL NEGATIVE code = KETU) UA SPECIFIC GRAVITY (test 1.011 1.001-1.035 code = SGU) UA BLOOD DIPSTICK (test 0.5 mg/dL (2+) mg/dL NEGATIVE A code = MARIUM) UA PH DIPSTICK (test code 6.0 5.0-8.0 = SHAILESH) UA PROTEIN DIPSTICK (test NEGATIVE mg/dL NEGATIVE code = PROU) UA UROBILINIOGEN DIPSTICK Normal mg/dL NEGATIVE (test code = URO) UA NITRITE DIPSTICK (test NEGATIVE NEGATIVE code = EVELYN) UA LEUKOCYTE ESTERASE W 75 Noelle/uL (1+) NEGATIVE A REFLEX (test code = Noelle/uL LEUUR) UA WBC (test code = WBCU) 6-10 per HPF 0-5 A UA RBC (test code = RBCU) 0-2 #/HPF 0-5 UA EPITHELIAL CELLS (test FEW per HPF FEW code = EPIU) UA BACTERIA (test code = FEW #/HPF NONE A BACU) URINALYSIS [id number] 15:07:00 Test Item Value Reference Range Interpretation Comments UA COLOR (test code = Light-Yellow YELLOW COLU) UA APPEARANCE (test code CLEAR CLEAR = APPU) UA GLUCOSE DIPSTICK (test NEGATIVE mg/dL NEGATIVE code = DGLUU) UA BILIRUBIN DIPSTICK NEGATIVE mg/dL NEGATIVE (test code = BILU) UA KETONE DIPSTICK (test NEGATIVE mg/dL NEGATIVE code = KETU) UA SPECIFIC GRAVITY (test 1.011 1.001-1.035 code = SGU) UA BLOOD DIPSTICK (test 0.5 mg/dL (2+) mg/dL NEGATIVE A code = MARIUM) UA PH DIPSTICK (test code 6.0 5.0-8.0 = SHAILESH) UA PROTEIN DIPSTICK (test NEGATIVE mg/dL NEGATIVE code = PROU) UA UROBILINIOGEN DIPSTICK Normal mg/dL NEGATIVE (test code = URO) UA NITRITE DIPSTICK (test NEGATIVE NEGATIVE code = EVELYN) UA LEUKOCYTE ESTERASE W 75 Noelle/uL (1+) NEGATIVE A REFLEX (test code = Noelle/uL LEUUR) UA WBC (test code = WBCU) per HPF 0-5 UA RBC (test code = RBCU) per HPF 0-5 UA EPITHELIAL CELLS (test per HPF Few code = EPIU) UA BACTERIA (test code = per HPF NONE BACU)
[2020-06-28 06:53] LABS: Specific Gravity > 1.030 (1.005-1.030)
[2020-06-28] MEDS ORDERED: Ringers Lactate 1,000 ML IV ONE (06:57)
[2020-06-28] MEDS ORDERED: CEFOXITIN/SWI 1gm 1 GM/10 ML SYR ONE (06:58)
[2020-06-28] MEDS ORDERED: MIDAZOLAM HCL 2 MG/2 ML INJ ONE (07:37)
[2020-06-28] MEDS ORDERED: propofoL 200 MG/20 ML VIAL IV ONE (07:37)
[2020-06-28] MEDS ORDERED: FENTANYL CITR 250 MCG/5 ML ONE (07:37)
[2020-06-28] MEDS ORDERED: GLYCOPYRROLATE 0.2 MG/ML SYR ONE ×2 (07:37)
[2020-06-28] MEDS ORDERED: LIDOCAINE 1% MPF 5 ML VIAL ONE (07:38)
[2020-06-28] MEDS ORDERED: ROCURONIUM 50 MG/5 ML VIAL IV ONE (07:38)
[2020-06-28] MEDS ORDERED: ONDANSETRON 4 MG/2 ML VIAL ONE (07:38)
--- NOTE | 2020-06-28 08:35 | P.BOP ---
Preoperative diagnosis: symptomatic cholelithiasis, acute cholecystitis, pancreatitis Postoperative diagnosis: same Primary procedure: Laparoscopic cholecystectomy Daycare Director: Yuliana Cole) Estimated blood loss: <10cc Specimen: gb Findings: as above Anesthesia: General Complications: None Transferred to: Recovery Room Condition: Good
[2020-06-28] MEDS: HYDROMORPHONE HCL 1 MG/ML INJ ONE ×2 (08:50→08:59)
[2020-06-28] MEDS ORDERED: HYDROMORPHONE HCL 1 MG/ML INJ ONE (09:20)
--- NOTE | 2020-06-28 09:54 | OP ---
Date of Procedure: 06/28/2020 Surgeon: Miguel Angel Palacios MD [employer] Engine Mechanic: MADDI Russo. Preoperative Diagnoses: Symptomatic cholelithiasis, acute cholecystitis, pancreatitis, right upper q uadrant abdominal pain, increased liver enzymes. Postoperative Diagnoses: Symptomatic cholelithiasis, acute cholecystitis, pancreatitis, right upper quadrant abdominal pain, increased liver enzymes. Procedure: Laparoscopic cholecystectomy. Estimated Blood Loss: Less than 10 cc. Specimen: Gallbladder. Anesthesia: General plus local. History Of Present Illness: This is a case of a 24-year-old patient with multiple medical problems, chronic pancreatitis, right upper quadrant abdominal pain, acute cholecystitis. She was trying to mo dify her diet, but it did not improve, her pain is getting worse. She had an MRCP done since she has some increased liver enzymes, but shows no stone in the common bile duct per radiologist. The patie nt scheduled for laparoscopic, possible open cholecystectomy with benefits, alternatives, risks inclu ding, but not limited to infection, bleeding, damage to adjacent structures, anesthesia complication, choledocholithiasis, bile leak, pancreatitis, NV, and . Patient also understands this may not relieve the symptoms. She might need more than one surgical intervention. She understood, signed a consent. Description Of Procedure: The patient was brought to the operating room, placed in supine position. Anesthesia was done without complication. Abdominal area was prepped and draped in a sterile fashio n. Marcaine 0.5% was injected for local anesthetic followed by sharp incision of the skin in the inf raumbilical region. Incision was carried down to fascia, which was opened under direct vision. Lisa toneum was encountered, opened under direct vision. Vicryl #1 placed inside the fascia. Tim troc ar was carefully introduced. No bleeding was obtained. I placed 3 more trocars, 5 mm each one of th em in the epigastric right upper quadrant area. This was done under direct vision. At that moment, I proceeded to put a grasper in the fundus of the gallbladder, another grasper in the infundibulum, r etracting the gallbladder in the inferolateral fashion exposing the triangle of Calot obtaining criti ling view. The cystic duct and cystic artery were clearly isolated, freed circumferentially, and a co nnection between those and the gallbladder were clearly identified. I proceeded to ligate by using 3 clips proximal, 1 clip distal, ligation in the middle. Same was done with the cystic artery. A sma ll little branch of the cystic artery was also ligated using same technique. Hepatic arteries and co mmon bile duct were protected at all times. The gallbladder was removed from liver using the Bovie c auterizer and removed from abdominal cavity using EndoCatch through the umbilical incision. Area was inspected once again. No bile leak. No bleeding after irrigation. At that moment, I proceeded to remove the trocars under direct vision. Deflated the pneumoperitoneum. Closed the fascia with #1 Vi cryl, irrigated subcutaneous tissue, closed with 3-0 chromic and skin in a subcuticular fashion with 3-0 chromic and Steri-Strips on top. Sponge count, instrument counts correct. Patient tolerated the procedure well. Patient was sent to Recovery in stable condition. Diagnoses: Symptomatic cholelithiasis, acute cholecystitis, pancreatitis, increased liver enzymes, a cute abdominal pain, status post magnetic resonance cholangiopancreatography. Procedure: Laparoscopic cholecystectomy. Disposition: Home. Activity: As tolerated, no heavy lifting. Plan: Follow up in my office in 1 week. Call for appointment at [phone]. Keep area dry for 48 mary rs, then may shower and keep Steri-Strips intact. Medications: Augmentin 875 p.o. q.12., Zofran 4 p.o. q.6 hours p.r.n. nausea and Tylenol No.3 q.4 ho urs p.r.n. pain. NEVIN/IVY Voice ID: [id number] Report ID: [id number]
[2020-06-28] MEDS ORDERED: HYDROCODONE/APAP 7.5/325 MG TAB PO ONE (10:10)
[2020-06-28] MEDS ORDERED: HYDROCODONE/APAP 7.5/325 MG TAB ONE (10:24)
[2020-06-28 11:11] VITALS: BP 133/67; TEMP 97.3; O2SAT 99
== END 2020-06-28 10:50 | disposition home or self-care (01) ==
LOC: OR 06:24
PROVIDERS: ATTEND Surgery
PROC: 0FT44ZZ Resection of Gallbladder, Percutaneous Endoscopic Approach (ICD-10-PCS; principal; 2020-06-28 07:30)
DX: K80.00 Calculus of gallbladder with acute cholecystitis without obstruction (principal); K85.90 Acute pancreatitis without necrosis or infection, unspecified; R94.5 Abnormal results of liver function studies; Z20.822 Contact with and (suspected) exposure to COVID-19
CPT/HCPCS: 85025; 80048; 36415; 82150; 81025; 80076; 88304; 83690; 47562; J2704; J2250; J3010; J1170 ×2; J7120; J2405